=== PATIENT | male | born 1955 | race Caucasian/White ===

== ENCOUNTER 2020-07-25 19:06 | Emergency (ER) | payer MEDICAID, MEDICARE, OTHER ==
[2020-07-25] MEDS ORDERED: Tamsulosin 0.4 MG Cap.ER PO ONE (21:02)
--- NOTE | 2020-07-25 21:08 | EDM.PDOC ---
ED HPI GENERAL MEDICAL PROBLEM - General Chief Complaint: Flank Pain Stated Complaint: KIDNEY STONES? LEFT SIDE GROIN PAIN Time Seen by Provider: 07/25/20 19:57 Source of Information: Reports: Patient History Limitations: Reports: No Limitations - History of Present Illness INITIAL COMMENTS - FREE TEXT/NARRATIVE: Patient present to the ER today due to left back/flank and groin pain. He states he is in this local area to work on his cabin--was staining the last 2 days. He initially started having bilateral lower back pain (yesterday) and attributed it to working outside. Today noticed that he just did not feel his normal self, pain went from bilateral to left side/flank and into groin/testicle area--he started thinking about symptoms today and felt they were the same as 2 previous episodes of kidney stones he has had in the past (no intervention, passes stones without difficulty per his report). He states he has eating cereal for breakfast, couple slices pizza & apples for lunch then vomiting this up this afternoon. He denies any fever/chills otherwise. He states he has felt like he needed to have BM all day but unable. PMH--HLP (no medications), ELMO Meds--flonase, claritan, MVI NKDA Onset Date: 07/24/20 Duration: Colic, Recurring Location: Reports: Abdomen, Back, Radiates to (left flank) Quality: Reports: Ache, Dull, Same as Previous Episode (reports 2 previous renal colic/kidney stone episodes in the past) Severity: Moderate (pain upon arrival to ER 6/10 left back/flank/groin areas) Associated Symptoms: Reports: No Other Symptoms Left Flank Pain Score (Numeric/FACES): 7 - Related Data Allergies Allergy/AdvReac Type Severity Reaction Status Date / Time No Known Allergies Allergy Verified 07/25/20 19:54 Home Meds: Home Meds Fluticasone Propionate [Flonase Allergy Relief] 1 spray NASBOTH DAILY 07/25/20 [History] Loratadine 10 mg PO DAILY 07/25/20 [History] Lutein/Min/Vit C/Vit E Acetate [Ocuvite Lutein] 1 tab PO DAILY 07/25/20 [History] NK [No Known Home Meds] 07/25/20 [History] Past Medical History HEENT History: Reports: Impaired Vision Cardiovascular History: Reports: High Cholesterol Genitourinary History: Reports: Renal Calculus - Past Surgical History HEENT Surgical History: Reports: Other (See Below) Other HEENT Surgeries/Procedures: septoplasty Social & Family History - Tobacco Use Tobacco Use Status *Q: Never Tobacco User - Caffeine Use Caffeine Use: Reports: Coffee - Recreational Drug Use Recreational Drug Use: No ED ROS GENERAL - Review of Systems Review Of Systems: See Below Constitutional: Reports: Other (not feeling his normal self today--very vague in nature) HEENT: Reports: No Symptoms Respiratory: Reports: No Symptoms Cardiovascular: Reports: No Symptoms Endocrine: Reports: No Symptoms GI/Abdominal: Reports: No Symptoms : Reports: Flank Pain. Denies: Dysuria, Frequency, Hematuria, Pain, Urgency Musculoskeletal: Reports: No Symptoms Skin: Reports: No Symptoms Neurological: Reports: No Symptoms Psychiatric: Reports: No Symptoms Hematologic/Lymphatic: Reports: No Symptoms Immunologic: Reports: No Symptoms ED EXAM, RENAL/ - Physical Exam Exam: See Below Exam Limited By: No Limitations General Appearance: Alert, WD/WN, No Apparent Distress Eye Exam: Bilateral Eye: EOMI, Normal Inspection, PERRL Ears: Normal External Exam Nose: Normal Inspection Throat/Mouth: Normal Inspection, Normal Oropharynx, Normal Voice, No Airway Compromise Head: Atraumatic, Normocephalic Neck: Normal Inspection, Supple, Non-Tender, Full Range of Motion. No: Lymphadenopathy (R), Lymphadenopathy (L) Respiratory/Chest: No Respiratory Distress, Lungs Clear, Normal Breath Sounds Cardiovascular: Normal Peripheral Pulses, Regular Rate, Rhythm, No Edema, No Murmur GI/Abdominal: Normal Bowel Sounds, Soft, Tender (left flank tenderness, no CVA tenderness bilaterally) (Male) Exam: Deferred Rectal (Males) Exam: Deferred Back Exam: Normal Inspection, Full Range of Motion. No: CVA Tenderness (R), CVA Tenderness (L) Extremities: Normal Inspection, Normal Range of Motion, Non-Tender, No Pedal Edema, Normal Capillary Refill Neurological: Alert, Oriented, Normal Cognition, Normal Gait, No Motor/Sensory D eficits Psychiatric: Normal Affect, Normal Mood Skin Exam: Warm, Dry, Intact, Normal Color Lymphatic: No Adenopathy Course - Vital Signs Text/Narrative:: 2109--reviewed today's ER findings with patient, he states that pain has resolved at this time. offered CT abd/pelvis to evaluate further for kidney stone, declined based on our discussion and now his reported resolution of symptoms. will provide flomax, zofran and recommend PCM follow up for noted e levated BP and Urology referral. did d/w patient recommendation for home BP cuff and monitoring / log readings 1-2 times a day, take to PCM appt for review. verbalized understanding/agreement with plan of care at this time of d/c Last Recorded V/S: Last Vital Signs Temp 98.1 F 07/25/20 19:54 Pulse 73 07/25/20 20:20 Resp 12 07/25/20 20:20 BP 162/95 H 07/25/20 20:20 Pulse Ox 97 07/25/20 20:20 - Orders/Labs/Meds Orders: Active Orders 24 hr Category Date Time Status Tamsulosin [Flomax] Med 07/25/20 21:02 Once 0.4 mg PO ONETIME ONE Labs: Laboratory Tests 07/25/20 07/25/20 07/25/20 Range/Units 19:59 20:09 20:09 WBC 12.8 H (4.5-11.0) K/uL RBC 4.86 (4.30-5.90) M/uL Hgb 14.6 (12.0-15.0) g/dL Hct 42.5 (40.0-54.0) % MCV 87 (80-98) fL MCH 30 (27-31) pg MCHC 34 (32-36) % Plt Count 199 (150-400) K/uL Neut % (Auto) 92 H (36-66) % Lymph % (Auto) 3 L (24-44) % [place] % (Auto) 5 (2-6) % Eos % (Auto) 0 L (2-4) % Baso % (Auto) 0 (0-1) % Sodium 145 (140-148) mmol/L Potassium 4.0 (3.6-5.2) mmol/L Chloride 105 (100-108) mmol/L Carbon Dioxide 26 (21-32) mmol/L Anion Gap 13.6 (5.0-14.0) mmol/L BUN 20 H (7-18) mg/dL Creatinine 1.5 H (0.8-1.3) mg/dL Est Cr Clr Drug Dosing 49.34 mL/min Estimated GFR (MDRD) 47 L (>60) Glucose 158 H (74-106) mg/dL Calcium 9.7 (8.5-10.1) mg/dL Total Bilirubin 1.1 H (0.2-1.0) mg/dL AST 32 (15-37) U/L ALT 33 (12-78) U/L Alkaline Phosphatase 50 (46-116) U/L Total Protein 7.4 (6.4-8.2) g/dL Albumin 4.1 (3.4-5.0) g/dL Globulin 3.3 (2.3-3.5) g/dL Albumin/Globulin Ratio 1.2 (1.2-2.2) Urine Color Yellow (YELLOW) Urine Appearance Clear (CLEAR) Urine pH 6.0 (5.0-8.0) Ur Specific [place] >= 1.030 (1.008-1.030) Urine Protein Trace H (NEGATIVE) mg/dL Urine Glucose (UA) Negative (NEGATIVE) mg/dL Urine Ketones 15 H (NEGATIVE) mg/dL Urine Occult Blood Small H (NEGATIVE) Urine Nitrite Negative (NEGATIVE) Urine Bilirubin Negative (NEGATIVE) Urine Urobilinogen 0.2 (0.2-1.0) EU/dL Ur Leukocyte Esterase Negative (NEGATIVE) Urine RBC 0-5 (0-5) Urine WBC 0-5 (0-5) Ur Epithelial Cells Not seen Amorphous Sediment Occasional Urine Bacteria Rare Urine Mucus Rare Urine Other Departure - Departure Time of Disposition: 21:13 Disposition: Home, Self-Care 01 Condition: Good Clinical Impression: Renal colic on left side, Elevated blood pressure reading, Mild dehydration - Discharge Information *PRESCRIPTION DRUG MONITORING PROGRAM REVIEWED*: Not Applicable *COPY OF PRESCRIPTION DRUG MONITORING REPORT IN PATIENT OPAL: Not Applicable Instructions: Renal Colic, [id number], Kidney Stones, [id number], Hypertension, Adult, [id number], Dietary Guidelines to Help Prevent Kidney Stones Referrals: Keaton Chandler [Primary Care Provider] - Additional Instructions: It is recommended that you schedule an ER follow up appointment with your PCM--family doctor/primary director of managed care regarding your ER visit including possible kidney stone and elevated blood pressure Your blood pressure was elevated in the ER tonight--goal readings are 120/80, any readings over 140/90 are considered elevated. As discussed it is recommended that you get a "khpycj-[id number]-[id number] road" priced Blood Pressure cuff--keep a log of your blood pressures 1-2 times a day (sit for 15 minutes before taking, rest your arm comfortably on kitchen table, do not smoke 30 minutes prior to checking). Take your log to any & all family doctor visits for review Ensure you are drinking plenty of water--fluids (juice/sports drinks of choice) to stay well hydrated and help pass any possible kidney stone Sepsis Event Note (ED) - Evaluation Sepsis Screening Result: No Definite Risk - Focused Exam Vital Signs: Vital Signs Temp Pulse Resp BP Pulse Ox 07/25/20 20:20 73 12 162/95 H 97 07/25/20 20:13 72 19 183/101 H 97 07/25/20 19:54 98.1 F 79 16 196/108 H 99 07/25/20 19:50 85 15 187/113 H 97 07/25/20 19:27 98.1 F 79 16 196/108 H 99 - My Orders Last 24 Hours: My Active Orders 07/25/20 21:02 Tamsulosin [Flomax] 0.4 mg PO ONETIME ONE - Assessment/Plan Last 24 Hours: My Active Orders 07/25/20 21:02 Tamsulosin [Flomax] 0.4 mg PO ONETIME ONE
== END 2020-07-25 21:40 | disposition home or self-care (01) ==
LOC: JP.ED 19:06
DX: N23 Unspecified renal colic (principal); E86.0 Dehydration; I10 Essential (primary) hypertension
CPT/HCPCS: 36415; 80053; 81001; 85025; 99284; A9270; 99283

== ENCOUNTER 2020-11-05 14:00 | Emergency (ER) | payer MEDICARE ==
--- NOTE | 2020-11-05 14:55 | EDM.PDOC ---
ED HPI GENERAL MEDICAL PROBLEM - General Chief Complaint: General Stated Complaint: DIFF. BREATHING/SWEATS/FAINT Time Seen by Provider: 11/05/20 14:51 Source of Information: Reports: Patient, Family ( at bedside and supportive), RN History Limitations: Reports: No Limitations - History of Present Illness INITIAL COMMENTS - FREE TEXT/NARRATIVE: Georgi is a 65 year old male with fairly minimal medical history whom presents to ER with shortness of breath and diaphoresis with walking a short distances this morning around 11 am. Georgi reports have 3 cups of black coffee this am then went out side to get a ladder and noted increased work of breathing walking the short distance and then carrying the ladder this am. Georgi stopped activity and sat down inside which prompted symptoms to resolve. did not not change in color or pale, without nausea or vomiting. Georgi had small breakfast sandwich but noted appetite was decreased. Georgi report recent PCP visit with blood work down slightly elevated glucose and cholesterol. Georgi is normally fairly active with riding bike 10-20 miles per day or walking 3-5 miles per day. Georig rode bike 10 miles yesterday without any concerning symptoms or difficulty. Georgi denies family history of cardiac events and does not currently take aspirin on a daily basis. Georgi contacted insurance/clinic nurse line whom recommended ER evaluation today which prompted visit. Georgi has not had a recurrence of symptoms since this am. Georgi has known elevated blood pressure during office visits but blood pressure is in normal range when taken with home machine and discussed with PCP. - Related Data Allergies Allergy/AdvReac Type Severity Reaction Status Date / Time No Known Allergies Allergy Verified 11/05/20 14:47 Home Meds: Home Meds Fluticasone Propionate [Flonase Allergy Relief] 1 spray NASBOTH DAILY 07/25/20 [History] Loratadine 10 mg PO DAILY 07/25/20 [History] Lutein/Min/Vit C/Vit E Acetate [Ocuvite Lutein] 1 tab PO DAILY 07/25/20 [History] Past Medical History HEENT History: Reports: Impaired Vision Cardiovascular History: Reports: High Cholesterol Genitourinary History: Reports: Renal Calculus - Past Surgical History HEENT Surgical History: Reports: Other (See Below) Other HEENT Surgeries/Procedures: septoplasty Social & Family History - Caffeine Use Caffeine Use: Reports: Coffee ED ROS GENERAL - Review of Systems Review Of Systems: Comprehensive ROS is negative, except as noted in HPI. ED EXAM, GENERAL - Physical Exam Exam: See Below Exam Limited By: No Limitations General Appearance: Alert, WD/WN, No Apparent Distress Eye Exam: Bilateral Eye: Normal Inspection Ears: Hearing Grossly Normal Nose: Normal Inspection Throat/Mouth: Normal Inspection, Normal Voice, No Airway Compromise Neck: Normal Inspection, Full Range of Motion Respiratory/Chest: No Respiratory Distress, Lungs Clear, Normal Breath Sounds Cardiovascular: Normal Peripheral Pulses, Regular Rate, Rhythm, No Murmur GI/Abdominal: Soft, Non-Tender Extremities: Normal Inspection, Normal Range of Motion Neurological: Alert, Oriented, CN II-XII Intact, Normal Cognition, Normal Gait Psychiatric: Normal Affect, Normal Mood Skin Exam: Warm, Dry, Intact, Normal Color, No Rash #1 Interpretation EKG Date: 11/05/20 Time: 14:44 Rhythm: NSR Rate (Beats/Min): 81 [place]: Normal P-Wave: Present QRS: Normal ST-T: Depressed (1.5 mm depression V3 and aVF) QT: Normal Comparison: NA - No Prior EKG Course - Vital Signs Last Recorded V/S: Last Vital Signs Temp 37.6 C 11/05/20 14:49 Pulse 79 11/05/20 15:11 Resp 13 11/05/20 15:11 BP 163/100 H 11/05/20 15:11 Pulse Ox 95 11/05/20 15:11 - Orders/Labs/Meds Orders: Active Orders 24 hr Category Date Time Status Cardiac Monitoring [RC] .As Directed Care 11/05/20 14:42 Active Peripheral IV Care [RC] . DIRECTED Care 11/05/20 14:53 Active Iopamidol [Isovue-370 (76%)] Med 11/05/20 17:15 Active 100 ml IV . DIRECTED Sodium Chloride 0.9% [Normal Saline] 100 ml Med 11/05/20 17:15 Active IV ASDIRECTED Sodium Chloride 0.9% [Saline Flush] Med 11/05/20 14:53 Active 10 ml FLUSH ASDIRECTED PRN Isolation [COMM] Stat Oth 11/05/20 16:18 Ordered Peripheral IV Insertion Adult [OM.PC] Urgent Oth 11/05/20 14:53 Ordered EKG 12 Lead [EK] Urgent Ther 11/05/20 14:42 Ordered Medication Orders Sodium Chloride (Normal Saline) 100 mls @ 3 mls/sec IV ASDIRECTED SU Last Admin: 11/05/20 17:59 Dose: 3 mls/sec Documented by: ALECIA Iopamidol (Iopamidol 755 Mg/Ml 100 Ml Bottle) 100 ml IV . DIRECTED SU Last Admin: 11/05/20 17:59 Dose: 100 ml Documented by: ALECIA Sodium Chloride (Sodium Chloride 0.9% 10 Ml Syringe) 10 ml FLUSH ASDIRECTED PRN PRN Reason: Keep Vein Open Last Admin: 11/05/20 17:59 Dose: 10 ml Documented by: THELASJimi Admin: 11/05/20 15:59 Dose: 10 ml Documented by: PREILOR Labs: Laboratory Tests 11/05/20 11/05/20 11/05/20 Range/Units 15:26 15:26 15:26 WBC 11.9 H (4.5-11.0) K/uL RBC 4.86 (4.30-5.90) M/uL Hgb 14.5 (12.0-15.0) g/dL Hct 42.3 (40.0-54.0) % MCV 87 (80-98) fL MCH 30 (27-31) pg MCHC 34 (32-36) % Plt Count 163 (150-400) K/uL Neut % (Auto) 88.5 H (36-66) % Lymph % (Auto) 6.6 L (24-44) % [place] % (Auto) 4.5 (2-6) % Eos % (Auto) 0.3 L (2-4) % Baso % (Auto) 0.1 (0-1) % D-Dimer, Quantitative 9712.02 H (0.0-500.0) ng/mL Sodium 141 (140-148) mmol/L Potassium 4.4 (3.6-5.2) mmol/L Chloride 105 (100-108) mmol/L Carbon Dioxide 26 (21-32) mmol/L Anion Gap 10.0 (5.0-14.0) mmol/L BUN 16 (7-18) mg/dL Creatinine 1.0 (0.8-1.3) mg/dL Est Cr Clr Drug Dosing 74.01 mL/min Estimated GFR (MDRD) > 60 (>60) Glucose 113 H (74-106) mg/dL Calcium 9.0 (8.5-10.1) mg/dL Total Bilirubin 0.7 (0.2-1.0) mg/dL AST 22 (15-37) U/L ALT 31 (12-78) U/L Alkaline Phosphatase 47 (46-116) U/L Troponin I 0.020 (0.000-0.056) ng/mL NT-Pro-B Natriuret Pep (5-125) pg/mL Total Protein 7.0 (6.4-8.2) g/dL Albumin 3.6 (3.4-5.0) g/dL Globulin 3.4 (2.3-3.5) g/dL Albumin/Globulin Ratio 1.1 L (1.2-2.2) SARS-CoV-2 RNA (VIRAJ) (NEGATIVE) 11/05/20 11/05/20 Range/Units 15:26 16:17 WBC (4.5-11.0) K/uL RBC (4.30-5.90) M/uL Hgb (12.0-15.0) g/dL Hct (40.0-54.0) % MCV (80-98) fL MCH (27-31) pg MCHC (32-36) % Plt Count (150-400) K/uL Neut % (Auto) (36-66) % Lymph % (Auto) (24-44) % [place] % (Auto) (2-6) % Eos % (Auto) (2-4) % Baso % (Auto) (0-1) % D-Dimer, Quantitative (0.0-500.0) ng/mL Sodium (140-148) mmol/L Potassium (3.6-5.2) mmol/L Chloride (100-108) mmol/L Carbon Dioxide (21-32) mmol/L Anion Gap (5.0-14.0) mmol/L BUN (7-18) mg/dL Creatinine (0.8-1.3) mg/dL Est Cr Clr Drug Dosing mL/min Estimated GFR (MDRD) (>60) Glucose (74-106) mg/dL Calcium (8.5-10.1) mg/dL Total Bilirubin (0.2-1.0) mg/dL AST (15-37) U/L ALT (12-78) U/L Alkaline Phosphatase (46-116) U/L Troponin I (0.000-0.056) ng/mL NT-Pro-B Natriuret Pep 60 (5-125) pg/mL Total Protein (6.4-8.2) g/dL Albumin (3.4-5.0) g/dL Globulin (2.3-3.5) g/dL Albumin/Globulin Ratio (1.2-2.2) SARS-CoV-2 RNA (VIRAJ) Negative (NEGATIVE) Meds: Medications Generic Name Dose Route Start Last Admin Trade Name Freq PRN Reason Stop Dose Admin Sodium Chloride 100 mls @ 3 mls/sec 11/05/20 17:15 11/05/20 17:59 Normal Saline IV 3 mls/sec ASDIRECTED SU Administration Iopamidol 100 ml 11/05/20 17:15 11/05/20 17:59 Iopamidol 755 Mg/Ml 100 Ml Bottle IV 100 ml . DIRECTED US Administration Sodium Chloride 10 ml 11/05/20 14:53 11/05/20 17:59 Sodium Chloride 0.9% 10 Ml Syringe FLUSH 10 ml ASDIRECTED PRN Administration Keep Vein Open Discontinued Medications Generic Name Dose Route Start Last Admin Trade Name Freq PRN Reason Stop Dose Admin Rivaroxaban 15 mg 11/05/20 18:18 11/05/20 18:38 Rivaroxaban 15 Mg Tab PO 11/05/20 18:19 15 mg NOW STA Administration - Re-Assessments/Exams Free Text/Narrative Re-Assessment/Exam: Chart review completed noting only other ER visit with self limiting ureteral stone. No previous EKG available. Current EKG subtle ST depression Leads III and aVF. Pending ER nursing assessment at this time prior to my assessment. 11/05/20 14:54 Updated patient regarding test results with fairly normal EKG, Normal CXR per my reading and radiology report. Troponin 0.02 not significant elevated to be concerning, Normal BNP but significantly elevated d dimer 9700+. Discussed further evaluation recommended including COVID testing and CT Angio to R/o PE due to symptoms and elevated d dimer testing. Risk factors are limited but shortness of breath, despite brief may represents larger clot burned which temporarily improved at this time but may be progressive and life threatening dependent on clot burden. Patient reports receiving COVID vaccine J&J in May for 2020. 11/05/20 16:24 Patient and are agreeable to proceed with COVID testing and CT angio Chest at this time. 11/05/20 16:[address] angio noting bilateral PE with ER physician on staff at this time. Bedside Cardiac Ultrasound and Bedside bilateral lower extremity venous Ultrasound completed with no findings of DVT at this time. 11/05/20 18:09 Radiology called regarding bilateral PEs with central located left worse than right. No right heart strain noted. No lung findings for concern regarding pneumonia or cancer. Discussed risk benefits of inpatient treatment vs outpatient treatment of PE with normal BNP, Troponin and no signs of heart strain on bedside ultrasound. Discussion took placed with myself, patient, and ER physician in department. Patient is told to return to ER call 911, if recurrence of profound shortness of breath for more invasive intervention of thrombolysis, radiology intervention or heparin and inpatient care. Called [facility] pharmacy regarding Xarelto 15mg BID x 14 days which is called in and available to continued at this time. First dose will be given in ER to ensure no adverse reactions. 11/05/20 18:15 Departure - Departure Time of Disposition: 19:21 Disposition: Home, Self-Care 01 Clinical Impression: Pulmonary embolism, Shortness of breath - Discharge Information Instructions: Pulmonary Embolism, Rivaroxaban oral tablets Referrals: PCP,None [Primary Care Provider] - Forms: ED Department Discharge Additional Instructions: 1. Start Xarelto 15mg every am and pm until follow-up in clinic at home, Radha He in the next week. 2. Call 911, return to ER if return of shortness or breath, chest pain, confusion or any acute changes. 3. Read information regarding PE and treatment recommendations. 4. [facility] to fill medication tonight to ensure your have enough for he next 2 weeks. Sepsis Event Note (ED) - Evaluation Sepsis Screening Result: No Definite Risk - Focused Exam Vital Signs: Vital Signs Temp Pulse Resp BP Pulse Ox 11/05/20 15:11 79 13 163/100 H 95 11/05/20 14:49 37.6 C 88 20 169/98 H 97 11/05/20 14:46 37.6 C 88 20 169/98 H 97 - My Orders Last 24 Hours: My Active Orders 11/05/20 14:42 Cardiac Monitoring [RC] .As Directed EKG 12 Lead [EK] Urgent 11/05/20 14:53 Peripheral IV Care [RC] . DIRECTED Sodium Chloride 0.9% [Saline Flush] 10 ml FLUSH ASDIRECTED PRN Peripheral IV Insertion Adult [OM.PC] Urgent 11/05/20 16:18 Isolation [COMM] Stat 11/05/20 17:15 Iopamidol [Isovue-370 (76%)] 100 ml IV . DIRECTED Sodium Chloride 0.9% [Normal Saline] 100 ml IV ASDIRECTED - Assessment/Plan Last 24 Hours: My Active Orders 11/05/20 14:42 Cardiac Monitoring [RC] .As Directed EKG 12 Lead [EK] Urgent 11/05/20 14:53 Peripheral IV Care [RC] . DIRECTED Sodium Chloride 0.9% [Saline Flush] 10 ml FLUSH ASDIRECTED PRN Peripheral IV Insertion Adult [OM.PC] Urgent 11/05/20 16:18 Isolation [COMM] Stat 11/05/20 17:15 Iopamidol [Isovue-370 (76%)] 100 ml IV . DIRECTED Sodium Chloride 0.9% [Normal Saline] 100 ml IV ASDIRECTED
--- NOTE | 2020-11-05 15:48 | CR ---
CHEST: 2 view CLINICAL HISTORY:Shortness of breath COMPARISON:None FINDINGS: The heart size, pulmonary vascularity and hilar structures are normal. No infiltrate effusion or pneumothorax is seen. IMPRESSION: No acute cardiopulmonary process.
[2020-11-05] MEDS: Sodium Chloride 0.9% 10 ML Syringe FLUSH PRN ×2 (15:59→17:59)
[2020-11-05] MEDS ORDERED: Sodium Chloride 0.9% 100 ML IV SCH (17:15)
[2020-11-05] MEDS ORDERED: Iopamidol 755 Mg/ML 100 ML Bottle IV SCH (17:15)
[2020-11-05] MEDS ORDERED: Rivaroxaban 15 MG Tab PO STA (18:18)
--- NOTE | 2020-11-05 18:22 | CRLCT ---
For Patients: As a result of the Cures Act, medical imaging exams and procedure reports are released immediately into your electronic medical record. You may view this report before your referring provider. If you have questions, please contact your health care provider. INDICATION : Shortness of breath. Elevated D-dimer. TECHNIQUE: Contrast-enhanced CT angiogram of the chest. COMPARISON: Correlation is made with a two-view chest x-ray from the same date. FINDINGS: Acute bilateral pulmonary emboli best appreciated within the central left upper and left lower pulmonary arterial tree, image 63 series 4 and within the proximal right lower pulmonary arterial tree, image 70 series 4. These do not classify as saddle emboli. Other small pulmonary emboli are identified bilaterally predominantly in the lower lobes right greater than left. No right heart strain. The right ventricular to left ventricular ratio is less than 1.0. Calcified granulomas left lower lobe of the lung with calcified left hilar/mediastinal lymph nodes. No evidence for occult malignancy or metastatic lung disease. The included skeleton is unremarkable. Images of the upper abdomen demonstrate a small esophageal hiatal hernia. Calcified splenic granulomas. Normal adrenal glands. Small cyst posterior superior pole right kidney. Tiny cortical cyst on the left. These findings were discussed with Dr. Green at 6:15 p.m. IMPRESSION: Bilateral central and more peripheral pulmonary emboli. Please note that all CT scans at this facility use dose modulation, iterative reconstruction, and/or weight-based dosing when appropriate to reduce radiation dose to as low as reasonably achievable. Dictated by Curtis Francis MD @ 11/05/2020 6:20:[address] Curtis Francis @ Nov 05 2020 6:20PM
== END 2020-11-05 19:44 | disposition home or self-care (01) ==
LOC: JP.ED 14:00
DX: I26.99 Other pulmonary embolism without acute cor pulmonale (principal); Z20.822 Contact with and (suspected) exposure to COVID-19
CPT/HCPCS: 36415; 71046; 71275; 80053; 83880; 84484; 85025; 85379; 93005; 99285; A9270; Q9967; U0002